=== PATIENT | female | born 1960 | race Caucasian/White ===

== ENCOUNTER 2025-01-19 15:36 | Emergency (ER) | payer MEDICAID ==
[~2025-01-19] VITALS: Ht 167.6 cm; Wt 125.0 kg
[2025-01-19 15:40] VITALS: TEMP 36.8; O2SAT 100
[2025-01-19 16:30] VITALS: BP 138/88; PULSE 99; RESP 22
[2025-01-19] MEDS: ACETAMINOPHEN 500MG TABLET PO ONE (16:30)
[2025-01-19] MEDS: TRAMADOL 50MG TABLET PO ONE (16:30)
[2025-01-19] MEDS ORDERED: HYDR-4001 MT (23:02)
[2025-01-19] MEDS: KETOROLAC 30MG/ML VIAL IM ONE (23:22)
[2025-01-19] MEDS: HYDROCODONE/ACETAMINOPHEN 5/325MG TABLET PO ONE (23:22)
== END 2025-01-20 04:48 | disposition home or self-care (01) ==
LOC: ER 15:36
DX: M25.562 Pain in left knee (principal); I10 Essential (primary) hypertension; E78.00 Pure hypercholesterolemia, unspecified; Z88.6 Allergy status to analgesic agent; Z88.8 Allergy status to other drugs, medicaments and biological substances
CPT/HCPCS: 99285; 76881; 96372; J1885; 99284